=== PATIENT | female | born 1965 | race Caucasian/White ===

== ENCOUNTER 2020-05-30 02:13 | Emergency (ER) | payer OTHER ==
[2020-05-30 02:30] VITALS: BMI 32.5
[2020-05-30 03:21] LABS: BASO % 0.4 % (0-2.0); EOS % 0.2 % (0-4.5); HEMATOCRIT 41.5 % (32.4-45.2); HEMOGLOBIN 13.8 GM/dL (10.7-15.3); LYMPH % 36.2 % (8-40); MCH 29.6 pg (25.7-33.7); MCHC 33.3 g/dl (32.0-36.0); MEAN CELL VOLUME 88.9 fl (80-96); MEAN PLT VOLUME 9.3 fl (7.5-11.1); MONO % 7.7 % (3.8-10.2); NEUT % 55.5 % (42.8-82.8); PLATELET COUNT 220 K/MM3 (134-434); RBC 4.67 M/mm3 (3.60-5.2); RDW 13.5 % (11.6-15.6); WHITE BLOOD COUNT 4.8 K/mm3 (4.0-10.0)
[2020-05-30 03:39] LABS: CHLORIDE 99 mmol/L (98-107); POTASSIUM 3.6 mmol/L (3.5-5.1); SODIUM 133 mmol/L (136-145)
[2020-05-30 03:43] LABS: CALCIUM 8.5 mg/dL (8.5-10.1)
[2020-05-30 03:44] LABS: ALBUMIN 3.6 g/dl (3.4-5.0); ANION GAP 11 MMOL/L (8-16); BLOOD UREA NITROGEN 12.1 mg/dL (7-18); CO2 24 mmol/L (21-32); GLUCOSE,RANDOM 300 mg/dL (74-106)
[2020-05-30 03:47] LABS: CREATININE 0.8 mg/dL (0.55-1.3); SGOT/AST 232 U/L (15-37); SGPT/ALT 489 U/L (13-61)
[2020-05-30 03:48] LABS: BILIRUBIN,TOTAL 0.6 mg/dL (0.2-1); LDH 277 U/L (84-246); TOT PROT 8.3 g/dl (6.4-8.2)
[2020-05-30 03:49] LABS: ALK PHOS 106 U/L (45-117)
[2020-05-30] MEDS ORDERED: ACETAMINOPHEN 1000 MG/100 ML VIAL (NON FORMULARY) IVPB ONE (05:18)
[2020-05-30] MEDS ORDERED: ACETAMINOPHEN INJECTION 100 ML IVPB ONE (05:23)
[2020-05-30 06:10] VITALS: BP 112/66
[2020-05-30 06:12] VITALS: PULSE 94; TEMP 98.2
== END 2020-05-30 07:01 | disposition home or self-care (01) ==
LOC: JER 02:13
PROC: 3E033NZ Introduction of Analgesics, Hypnotics, Sedatives into Peripheral Vein, Percutaneous Approach (ICD-10-PCS; principal; 2020-05-30)
DX: U07.1 COVID-19 (principal)
CPT/HCPCS: 36415; 71046-TC-FY; 80053; 82550; 82728; 83615; 84484; 85025; 85379; 86140; 87804; 93005; 93010; 99284-25; C9803; J0131; U0003

== ENCOUNTER 2021-05-19 17:30 | Emergency (ER) | payer OTHER ==
[2021-05-19 17:41] VITALS: BP 160/100; PULSE 85; TEMP 98.3; BMI 32.5
[2021-05-19 20:19] LABS: BASO % 2.1 % (0-2.0); EOS % 2.3 % (0-4.5); HEMATOCRIT 44.2 % (32.4-45.2); HEMOGLOBIN 14.7 GM/dL (10.7-15.3); MCH 29.4 pg (25.7-33.7); MCHC 33.3 g/dl (32.0-36.0); MEAN CELL VOLUME 88.2 fl (80-96); MEAN PLT VOLUME 9.2 fl (7.5-11.1); MONO % 7.6 % (3.8-10.2); PLATELET COUNT 239 10^3/uL (134-434); RBC 5.01 M/mm3 (3.60-5.2); RDW 13.3 % (11.6-15.6); WHITE BLOOD COUNT 7.4 K/mm3 (4.0-10.0)
[2021-05-19 20:43] LABS: CHLORIDE 102 mmol/L (98-107); SODIUM 137 mmol/L (136-145)
[2021-05-19 20:45] LABS: CALCIUM 9.9 mg/dL (8.5-10.1)
[2021-05-19 20:46] LABS: ALBUMIN 3.8 g/dl (3.4-5.0); ANION GAP 8 MMOL/L (8-16); BLOOD UREA NITROGEN 17.9 mg/dL (7-18); CO2 27 mmol/L (21-32); GLUCOSE,RANDOM 276 mg/dL (74-106)
[2021-05-19 20:49] LABS: CREATININE 0.9 mg/dL (0.55-1.3); SGOT/AST 135 U/L (15-37); SGPT/ALT 307 U/L (13-61)
[2021-05-19 20:50] LABS: BILIRUBIN,TOTAL 0.4 mg/dL (0.2-1); TOT PROT 8.5 g/dl (6.4-8.2)
[2021-05-19 20:52] LABS: ALK PHOS 131 U/L (45-117)
[2021-05-19] MEDS ORDERED: IBUPROFEN 600 MG TABLET (FP) PO ONE ×2 (20:55→21:13)
== END 2021-05-19 21:25 | disposition home or self-care (01) ==
LOC: JER 17:30
DX: R07.89 Other chest pain (principal)
CPT/HCPCS: 36415; 71045-TC-FY; 80053; 84484; 85025; 93005; 93010; 99285-25

== ENCOUNTER 2021-11-05 18:10 | Emergency (ER) | payer OTHER ==
[2021-11-05 18:37] VITALS: BP 121/73; PULSE 71; TEMP 98; BMI 28.6
[2021-11-05] MEDS ORDERED: LACTATED RINGERS SOLUTION 1000 ML INFUS.BAG IV ONE (19:58)
[2021-11-05 21:35] LABS: BASO % 0.6 % (0-2.0); EOS % 2.1 % (0-4.5); HEMATOCRIT 40.5 % (32.4-45.2); HEMOGLOBIN 13.7 GM/dL (10.7-15.3); LYMPH % 43.6 % (8-40); MCH 29.8 pg (25.7-33.7); MCHC 33.8 g/dl (32.0-36.0); MEAN CELL VOLUME 88.3 fl (80-96); MEAN PLT VOLUME 9.2 fl (7.5-11.1); MONO % 6.5 % (3.8-10.2); NEUT % 47.2 % (42.8-82.8); PLATELET COUNT 225 10^3/uL (134-434); RBC 4.58 M/mm3 (3.60-5.2); RDW 13.5 % (11.6-15.6); WHITE BLOOD COUNT 8.3 K/mm3 (4.0-10.0)
[2021-11-05 21:43] LABS: INR 0.99 (0.83-1.09); PROTHROMBIN TIME (PATIENT) 11.4 SEC (9.7-13.0)
[2021-11-05 21:46] LABS: ACTIVATED PTT 30.3 SECONDS (25.2-36.5)
[2021-11-05 21:49] LABS: CHLORIDE 102 mmol/L (98-107); SODIUM 136 mmol/L (136-145)
[2021-11-05 21:51] LABS: CALCIUM 9.4 mg/dL (8.5-10.1)
[2021-11-05 21:52] LABS: ALBUMIN 3.5 g/dl (3.4-5.0); ANION GAP 7 MMOL/L (8-16); BLOOD UREA NITROGEN 14.4 mg/dL (7-18); CO2 27 mmol/L (21-32); GLUCOSE,RANDOM 349 mg/dL (74-106)
[2021-11-05 21:55] LABS: CREATININE 0.6 mg/dL (0.55-1.3); SGOT/AST 100 U/L (15-37); SGPT/ALT 285 U/L (13-61)
[2021-11-05 21:57] LABS: BILIRUBIN,TOTAL 0.3 mg/dL (0.2-1); TOT PROT 7.8 g/dl (6.4-8.2)
[2021-11-05 21:58] LABS: ALK PHOS 179 U/L (45-117)
== END 2021-11-05 23:02 | disposition home or self-care (01) ==
LOC: JER 18:10
DX: R79.9 Abnormal finding of blood chemistry, unspecified (principal)
CPT/HCPCS: 36415; 71046-TC-FY; 80053; 82010; 82962; 84484; 85025; 85610; 85730; 86850; 86900; 86901; 99285-25

== ENCOUNTER 2023-01-03 20:12 | Emergency (ER) | payer OTHER ==
[2023-01-03 20:35] VITALS: BP 00/00; PULSE 92; RESP 20; TEMP 98.8; BMI 30.9
== END 2023-01-03 23:48 | disposition left against medical advice (07) ==
LOC: JER 20:12
DX: R06.02 Shortness of breath (principal); B86 Scabies; B88.1 Tungiasis [sandflea infestation]
CPT/HCPCS: 99281-25